=== PATIENT | female | born 1980 | race Caucasian/White ===

== ENCOUNTER 2017-10-28 10:04 | Day surgery (SDC) | payer MEDICAID, SELFPAY ==
[2017-10-28] VITALS (8 sets, daily range): BP systolic 103–115; BP diastolic 58–80; PULSE 59–78; RESP 14–18; TEMP 36.3–36.9; O2SAT 99–100; BMI 26.9
[2017-10-28 10:29] LABS: Internal QC Validated? YES +Cl - CLEAR BKGD; Pregnancy, Urine Negative Negative
[2017-10-28 10:40] LABS: Hematocrit 39.2 % (37-47); Hemoglobin 13.1 g/dl (12.0-15.0); Mean Corp Hgb Conc 33.4 g/gl (32-36); Mean Corpuscular Hgb 29.5 pg (27.0-32.0); Mean Corpuscular Volume 88.3 fL (81-99); Mean Platelet Vol. 11.2 fl (6.2-12.0); Platelet Count 200 K/mm3 (150-450); RBC Distribution Width CV 12.7 % (11.6-14.6); Red Blood Count 4.44 M/mm3 (4.2-5.4); White Blood Count 5.1 K/mm3 (4.4-11.0)
[2017-10-28 10:42] LABS: Scan Indicated on CBC? Y/N NO
[2017-10-28 10:43] LABS: Prothrombin Time (Protime)PT. 12.7 SECONDS (11.7-14.9)
[2017-10-28 10:46] LABS: Partial Thromboplast Time 26.1 Seconds (24.1-36.2)
[2017-10-28 10:49] LABS: AST(SGOT) 21 U/L (15-37); Alanine Aminotransfer ALT/SGPT 35 U/L (13-56); Albumin, Serum 4.1 g/dL (3.2-5.0); Alkaline Phosphatase 71 U/L (45-117); Bilirubin, Direct 0.19 mg/dL (0.00-0.30); Protein, Total 8.1 g/dL (6.4-8.2)
--- NOTE | 2017-10-28 11:45 | FALS_PTH ---
PATIENT: CAMILA THOMASON [place] [facility] [id number] AGE/SX: 37/F ROOM: RE10/28/[address]: Dr. Mabel Bosch, MDDOB: 1980 BED: DIS: 10/28/2017 SPEC #: [id number] RECD: 10/28/17 15:52 STATUS: ANNA RELuis Angel #: [id number] BARBI: 10/28/17 11:[address]: Mabel Bosch DEPT: SURGICAL PATHOLOGY RECD BY: Escobar Villeda ENTERED: 10/29/17 10:49 SP TYPE: FALL TUBES OTHR DR: No Primary Care Phys Tissues: Fallopian tube Procedures: Surgery Specimen Level II HEADER OPERATION: Laparoscopic bilateral salpingectomy PRE-OP DIAGNOSIS: Sterilization request TISSUE SUBMITTED: Bilateral fallopian tubes MICROSCOPIC DIAGNOSIS Right and left fallopian tubes, bilateral salpingectomy: Complete cross-sections of fallopian tubes with no pathologic change. AM:leah 10/30/17 MICROSCOPIC DESCRIPTION Slides are reviewed. GROSS DESCRIPTION Received is one container labeled with the patient's name and designated bilateral fallopian tubes. The specimen consists of bilateral fallopian tubes including fimbrial ends. The fallopian tubes are not identified as right or left. One of the fallopian tubes measure 7.5 cm in length and 0.5 cm in diameter and the second fallopian tube measures 7 cm in length and 0.6 cm in diameter. Sections reveal unremarkable cut surfaces. Plastic Finisher sections are submitted in two cassettes with each cassette containing one fallopian tube. / AYAN:leah 10/29/17 TC:4 CPT: 38883 x2
[2017-10-28] MEDS: Bupivacaine 0.25% 30 ML Vial (12:32)
--- NOTE | 2017-10-28 12:36 | PCM.DC.TUB ---
Discharge Diet: No Restrictions, - - Increase fluid intake for 48 hours. Discharge Activity: Return to Normal Activity, May Drive - when you are no longer taking narcotic pain medications., May Shower, May Take a Tub Bath - in 7 days., - - Ambulate often the next week after surgery. May resume sexual activity in: 2 weeks Additional Activity Instructions:: Nothing in the vagina for the next 5 days. Call your doctor if your incision/area has: Continuous Slow Oozing, Sudden Increased Bleeding, Increased Pain/ Swelling, Increased Redness, Foul Smelling Discharge, Swelling at the incision site Call your doctor if you observe: Fever of 101 or Higher Cleanse incision/area with: - - you have skin glue over incision sites- ok to let soap and water run over them and dab dry. Allergies/Adverse Reactions: Allergies amoxicillin Allergy (Verified 10/21/17 09:25) Hives AND SWELLING cephalexin [From Keflex] Allergy (Verified 10/21/17 09:25) Anaphylaxis prednisone Allergy (Verified 10/21/17 09:25) Anaphylaxis acetaminophen [From Tylenol-Codeine] Adverse Reaction (Verified 10/21/17 09:25) Nausea pt. states she can take tylenol - just couldn't do the codeine codeine [From Tylenol-Codeine] Adverse Reaction (Verified 10/21/17 09:25) Nausea oxycodone [From Percocet] Adverse Reaction (Verified 10/21/17 09:25) Nausea PAPER TAPE Adverse Reaction (Uncoded 10/21/17 09:26) Unknown Medications to take at Discharge Vit No.87/Iron/FA/Dha [Prenate Mini Softgel] 1 each PO DAILY 06/17/17 Primary Care Physician: Care Physician,No Primary [Primary Care Provider] -
--- NOTE | 2017-10-28 12:41 | OP.PCM_ITS ---
Operative Report Date of Procedure: 10/28/17 Surgeon: Dr. Mabel Bosch Network Lead: none Preoperative diagnosis: Sterilization request Procedure performed: Laparoscopic bilateral salpingectomy Postoperative diagnosis: Sterilization request complications: None Estimated blood loss: 5 cc Drains: none Specimens collected: Bilateral tubes Findings: Normal tubes and ovaries bilaterally uterus sounded to approximately 7 cm. Operative note: After informed consent was obtained patient was taken to the operating room she was placed in supine position she was given anesthesia. She was then placed in the [facility] stirru and she was prepped and draped in normal sterile fashion. Bladder was drained prior to the start of procedure approximately 75 cc of clear yellow urine was expelled. At this time attention was turned to the vaginal portion where weighted speculum placed at posterior fornix vagina single-tooth tenaculum was used to gently grasp the internal the cervix. uterus was gently sounded to approximately 7cm. Uterine manipulator was placed without difficulty. Legs then placed in parallel with the abdomen the tenaculum and the weighted speculum were removed. 2 towel clamps were placed superior to umbilicus. After Marcaine was injected superior to umbilicus a small incision was made and a 5 mm trocar was placed under direct visualization. CO2 gas was used to insufflate the intra-abdominal cavity. Upon inspection no gross abnormalities uterus tubes and ovaries appeared to be normal. At this time then the LLQ port was placed again Marcaine was injected small incision was made a knife and the 5 mm trocar was placed. Alligator clamp was then placed suprpubically. At this time then tubes were traced back to the fimbriated ends. Ligasure was used to coagulate and ligate along mesosalpynx bilaterally until tubes removed completely. Good hemostasis was appreciated. At this time procedure was deemed complete successful. The gas was desufflated on from the intra-abdominal cavity. The trochars were removed. Skin was closed using 4-0 Monocryl in a subcutaneous fashion. Dermabond glue was placed. Instrument lap and needle counts were correct ?2. The uterine manipulator was removed. Vaginal sweep was performed it was negative. There were no complications anticipated normal postoperative course for this patient.
== END 2017-10-28 16:40 | disposition home or self-care (01) ==
LOC: SDC 10:05 → AC 10:07
PROVIDERS: Visit Provider Obstetrics & Gynecology
PROC: (CPT 58661; principal; 2017-10-28 11:30)
DX: Z30.2 Encounter for sterilization (principal)
CPT/HCPCS: 58661; 36415; 80076; 81025; 85027; 85610; 85730; 88302; 97161; J7120; J2405

== ENCOUNTER 2019-08-30 19:14 | Emergency (ER) | payer OTHER, SELFPAY ==
[2019-08-30 19:15] VITALS: BP 149/74; PULSE 84; RESP 18; TEMP 36.1; O2SAT 99; BMI 29.2
--- NOTE | 2019-08-30 20:51 | EKG12_ITS ---
Test Reason : REPEAT Blood Pressure : / mmHG Vent. Rate : 084 BPM Atrial Rate : 084 BPM P-R Int : 146 ms QRS Dur : 082 ms QT Int : 366 ms P-R-T Axes : 066 054 040 degrees QTc Int : 432 ms Normal sinus rhythm Normal ECG Confirmed by ALLI JORGE, BRIANNA ([id number]), associate editor MARINA ROSEN ([id number]) on 09/02/2019 1:36:41 PM Referred By: HERBERTH Confirmed By:BRIANNA CARSON MD
--- NOTE | 2019-08-30 20:51 | EKG12_ITS ---
Test Reason : CHEST HEAVINESS Blood Pressure : / mmHG Vent. Rate : 087 BPM Atrial Rate : 087 BPM P-R Int : 144 ms QRS Dur : 080 ms QT Int : 364 ms P-R-T Axes : 000 145 132 degrees QTc Int : 438 ms Rhythm: Sinus VS Ectopic Atrial Rhythm Consider Limb Lead Misplacement Recommend Repeat ECG Abnormal ECG Confirmed by ALLI JORGE, BRIANNA ([id number]), senior editor MARINA ROSEN ([id number]) on 09/02/2019 1:37:34 PM Referred By: HERBERTH Confirmed By:BRIANNA CARSON MD
--- NOTE | 2019-08-30 20:51 | RAD_ITS ---
STUDY: X-RAY CHEST REASON FOR EXAM: Female, 39 years old. CHEST TIGHTNESS AND HEAVINESS, HEADACHE AND ANXIETY FOLLOWING AN ARGUMENT WITH HER TEENAGE DAUGHTER TECHNIQUE: PA and lateral COMPARISON: None. FINDINGS: The lungs are clear and expanded. There is no demonstrated pleural abnormality. Normal size heart. Normal mediastinum and unique. Normal visualized pulmonary arteries. Normal visualized aortic arch and descending thoracic aorta. Normal visualized thoracic spine. Normal visualized ribs, clavicles, and shoulders. There is no demonstrated abnormality of the visualized soft tissue structures of the upper abdomen. RAD/Chest PA and Lateral IMPRESSION: Normal x-ray examination of the chest. Electronically Signed: Dhaval Flores MD at 21:20 EST , Service support ,
--- NOTE | 2019-08-30 20:52 | ED.DCSUM_ITS ---
History of Present Illness Chief Complaint: Anxiety Detail of Chief Complaint: Chest tightness Informant: Patient Onset: Today Current Severity: Mild Maximum Severity: Moderate Narrative: Patient presents with chest heaviness that started this evening. She states has been arguing with her daughter all day. She got her self worked up tonight and felt heaviness in her chest. Symptoms started in her chest around 630 or 7 PM. She tried to lie down without improvement. She states pain is currently about a 3 when it was an 8 previously. She denies any personal history of cardiac problems. - Past Medical History (1) Hypotension Status: Chronic (2) Anxiety Status: Chronic Past Medical History - Allergies and Home Meds Allergies/Adverse Reactions: Allergies amoxicillin Allergy (Verified 10/21/17 09:25) Hives AND SWELLING cephalexin [From Keflex] Allergy (Verified 10/21/17 09:25) Anaphylaxis prednisone Allergy (Verified 10/21/17 09:25) Anaphylaxis acetaminophen [From Tylenol-Codeine] Adverse Reaction (Verified 10/21/17 09:25) Nausea pt. states she can take tylenol - just couldn't do the codeine codeine [From Tylenol-Codeine] Adverse Reaction (Verified 10/21/17 09:25) Nausea oxycodone [From Percocet] Adverse Reaction (Verified 10/21/17 09:25) Nausea PAPER TAPE Adverse Reaction (Uncoded 10/21/17 09:26) Unknown Primary Care Physician: Care Physician,No Primary [Primary Care Provider] - Prior records reviewed: Yes Lives: With Family Smoking Status: Never smoker Review of Systems General: Denies: Chills, Fever Eyes: Denies: Visual changes - bilaterally ENT: Denies: Bilateral ear pain Cardiovascular: Reports: Chest pain, Heart racing Respiratory: Denies: Dyspnea Gastrointestinal: Denies: Nausea, Vomiting Genitourinary: Denies: Dysuria Musculoskeletal: Denies: Extremity Pain Skin: Denies: Rash Neurological: Reports: Headache Allergy: Denies: Uticaria Physical Exam Vital Signs/Narrative: Vital Signs Temp Pulse Resp BP Pulse Ox 08/30/19 19:15 97 F L 84 18 149/74 H 99 Inital Vital Signs reviewed: Yes General: Well nourished, Well developed Head: Normocephalic ENT: Moist mucous membranes Neck: Supple Cardiovascular: Regular rate, Regular rhythm Respiratory: No distress, CTA bilaterally Abdomen: Soft, Nontender Extremities: Nontender Skin: Normal color Neurological: Alert, Oriented x3 Psychological: Normal affect Diagnostic/Tx/Re-eval Impressions Chest X-Ray 08/30/19 20:51 IMPRESSION: Normal x-ray examination of the chest. Electronically Signed: Dhaval Flores MD at 21:20 EST , Service support , 08/30/19 20:51 Chest PA and Lateral [RAD] Stat - EKG Initial EKG Interpretation: Sinus Rhythm - Sinus 87 with nonspecific T wave abnormality. Follow-up EKG Interpretation: Sinus Rhythm - Sinus 84 with no acute ischemia. - Medical Decision Making Patient was placed on alarm security or surveillance monitor. She is had 2 EKGs that revealed no acute ischemia or arrhythmia. She was given 1 mg of p.o. Ativan and on repeat evaluation symptoms have completely resolved. Patient be given a prescription for Ativan to use as needed. She will call her insurance company tomorrow to see what doctors in the area are covered. I will give her a physician directory for the local PCPs as well. ED Disposition - Plan for ED Patient: Disposition: Home or Assisted Living Diagnosis: Anxiety Instructions: Anxiety Reaction Prescriptions: Lorazepam [Ativan] 1 mg PO TID #10 tablet Transmission Status: Sent to [id number]
[2019-08-30] MEDS: LORazepam 1 MG Tablet PO (21:15)
[2019-08-30 22:28] VITALS: PULSE 83; RESP 16; O2SAT 98
== END 2019-08-30 22:29 | disposition home or self-care (01) ==
PROVIDERS: Emergency Provider Emergency Medicine
DX: F41.9 Anxiety disorder, unspecified (principal); R07.89 Other chest pain; Z79.899 Other long term (current) drug therapy
CPT/HCPCS: 71046; 93005; 99284

== ENCOUNTER 2024-08-13 14:05 | Emergency (ER) | payer OTHER, SELFPAY ==
[2024-08-13 14:06] VITALS: BP 158/105; PULSE 73; RESP 16; TEMP 36.8; O2SAT 100; BMI 28.9
[2024-08-13] MEDS: LORazepam 1 MG Tablet PO (14:27)
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
--- NOTE | 2024-08-13 15:43 | EKG12_ITS ---
Test Reason : CP Blood Pressure : */* mmHG Vent. Rate : 69 BPM Atrial Rate : 69 BPM P-R Int : 134 ms QRS Dur : 84 ms QT Int : 386 ms P-R-T Axes : 44 59 34 degrees QTcB Int : 413 ms Normal sinus rhythm Normal ECG Confirmed by Shaka Albert ([id number]), editorial project manager MARINA ROSEN ([id number]) on 08/14/2024 9:36:31 AM Referred By: Stephan Vickers Confirmed By: Shaka Albert
[2024-08-13 16:13] VITALS: BP 143/88; PULSE 66; RESP 16; TEMP 36.8; O2SAT 100
== END 2024-08-13 16:14 | disposition home or self-care (01) ==
PROVIDERS: Emergency Provider Emergency Medicine; PCP Nurse Practitioner Family; Referring Provider Emergency Medicine; Visit Provider Emergency Medicine
DX: F41.9 Anxiety disorder, unspecified (principal); R03.0 Elevated blood-pressure reading, without diagnosis of hypertension; R06.4 Hyperventilation; Z79.899 Other long term (current) drug therapy; F32.A Depression, unspecified
CPT/HCPCS: 93005; 99283

== ENCOUNTER 2025-06-03 16:06 | Emergency (ER) | payer OTHER, SELFPAY ==
[2025-06-03 16:07] VITALS: BP 142/90; PULSE 82; RESP 16; TEMP 36.6; O2SAT 100; BMI 31.8
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
[2025-06-03] MEDS: 0.9% Normal Saline (1000mL) 1,000 ML 999 ML IV (17:50)
[2025-06-03 17:54] LABS: Mucous, Urine 0 SEEN /hpf (<or=2+)
[2025-06-03 18:06] VITALS: BP 143/82; PULSE 72; RESP 14; O2SAT 98
[2025-06-03 18:07] LABS: Hematocrit 37.9 % (37-47); Hemoglobin 13.1 g/dL (12.0-15.0); Immature Granulocytes Count 0.030 X10^3/uL (0.0-0.0); Mean Corp Hgb Conc 34.6 g/dL (32-36); Mean Corpuscular Volume 84.8 fL (81-99); Mean Platelet Vol. 11.1 fl (6.2-12.0); NRBC Flagged by Analyzer 0 % (0-5); Platelet Count 237 K/mm3 (150-450); RBC Distribution Width CV 12.7 % (11.6-14.6); RBC Distribution Width SD 38.7 fl (35.1-43.9); Red Blood Count 4.47 M/mm3 (4.2-5.4); White Blood Count 12.8 K/mm3 (4.4-11.0)
[2025-06-03 18:43] LABS: AST(SGOT) 17 U/L (<=31); Alanine Aminotransfer ALT/SGPT 16 U/L (<=34); Albumin, Serum 4.5 g/dL (3.5-5.0); Alkaline Phosphatase 57 U/L (35-104); Anion Gap 11 (5-15); BUN 18 mg/dL (4-19); BUN/Creat Ratio 19.0 RATIO (10-20); Calcium,Total 9.5 mg/dL (7.6-11.0); Carbon Dioxide 24.2 mmol/L (21.0-32.0); Chloride 102 mmol/L (98-108); Estimated Creatinine Clearance 89.06 ml/min (50-250); Globulin 3.1 g/dL (2.2-4.2); Glucose 122 mg/dL (70-99); Lipase 30 U/L (13-75); Potassium 3.8 mmol/L (3.3-5.1)
[2025-06-03 19:00] LABS: Glucose, Dipstick Normal (Normal); Ketone-Dipstick Negative (Negative); Leukocyte Esterase-Dipstick Negative /ul (Negative); Nitrite-Dipstick Negative (Negative); Occult Blood-Urine 150 /ul (Negative); Protein-Dipstick 15 mg/dl (Negative); Specific Gravity, Urine 1.015 (1.002-1.030); Urine Bilirubin Dipstick Negative (Negative)
[2025-06-03 19:01] LABS: Color, Urine Straw (Yellow)
[2025-06-03 19:24] LABS: Squamous Epithelial Cells - UA 5-10 SEEN /hpf (5-10)
[2025-06-03 19:25] LABS: Red Blood Cells-Urine 10-25 SEEN /hpf (0-5)
[2025-06-03 20:33] VITALS: BP 122/59; PULSE 74; RESP 16; TEMP 36.6; O2SAT 95
== END 2025-06-03 20:34 | disposition home or self-care (01) ==
PROVIDERS: Emergency Provider Surgery; PCP Nurse Practitioner Family; Visit Provider Surgery
DX: R10.11 Right upper quadrant pain (principal); R11.2 Nausea with vomiting, unspecified; R19.7 Diarrhea, unspecified; Z90.49 Acquired absence of other specified parts of digestive tract; F32.A Depression, unspecified; F41.9 Anxiety disorder, unspecified; Z79.899 Other long term (current) drug therapy
CPT/HCPCS: 80053; 81001; 83690; 85025; 96360; 96361; 99283; A4216